=== PATIENT | male | born 1985 | race Hispanic/Latino ===

== ENCOUNTER 2019-06-25 13:07 | Emergency (ER) | payer SELFPAY ==
[~2019-06-25 13:07] MED LIST: ISOVUE-370 76%-LOCM 1 ML ONE
--- NOTE | 2019-06-25 15:48 | CT ---
EXAM: CT Facial Bones W Con PROVIDED CLINICAL HISTORY: Oral pain COMPARISON: None FINDINGS: Multiple dental caries and periodontal disease is noted. There is no evidence for soft tissue fluid c ollection to suggest abscess. The submandibular and parotid glands appear normal. No evidence for regional lymph node enlargement. No prevertebral soft tissue swelling apparent. The palatine tonsils appear normal. The globes and other orbital contents appear normal. The visualized paranasal sinuses appear clear. IMPRESSION: Dental and periodontal disease without evidence for abscess.
[2019-06-25 16:16] LABS: #Basophils 0.1 thou/uL (0.0-0.2); #Eosinphils 0.5 thou/uL (0.0-0.7); #Lymphocytes 2.1 thou/uL (1.20-3.40); #Monocytes 1.1 thou/uL (0.11-0.59); #Neutrophils 8.2 thou/uL (1.40-6.50); %Basophils 0.8 % (0.0-1.0); %Eosinophils 4.2 % (0.0-10.0); %Lymphocytes 17.3 % (21.0-51.0); %Neutrophils 68.7 % (42.0-75.0); Hemoglobin 17.7 g/dL (14.0-18.0); Mean Corpuscular HGB CONC 34.1 g/dL (32.0-36.0); Mean Corpuscular Hemoglobin 32.4 pg (27.0-31.0); Mean Corpuscular Volume 94.9 fL (78.0-98.0); Mean Platelet Volume 7.5 fL (7.4-10.4); Platelet Count 253 thou/uL (130-400); RBC Distribution Width 12.6 % (11.5-14.5); Red Blood Cell (RBC) Count 5.46 mill/uL (4.70-6.10); White Blood Cell (WBC) Count 11.9 thou/uL (4.8-10.8)
[2019-06-25 16:41] LABS: ALT (SGPT) 67 U/L (8-55); AST (SGOT) 106 U/L (5-34); Albumin 4.6 g/dL (3.5-5.0); Alkaline Phosphatase 45 U/L (40-150); Anion Gap 11 mmol/L (10-20); BUN (Urea Nitrogen) 10 mg/dL (8.9-20.6); Bilirubin, Total 0.9 mg/dL (0.2-1.2); Calc. Creatinine Clearance 0 mL/min (70-130); Calcium 9.7 mg/dL (7.8-10.44); Carbon Dioxide 32 mmol/L (22-29); Chloride 100 mmol/L (98-107); Estimated GFR-MDRD 62; Globulin 2.8 g/dL (2.4-3.5); Glucose 98 mg/dL (70-105); Potassium 4.6 mmol/L (3.5-5.1); Protein, Total 7.4 g/dL (6.0-8.3); Sodium 138 mmol/L (136-145)
[2019-06-25] MEDS ORDERED: Ondansetron PF 4 MG/2 ML Vial ONE (18:36)
[2019-06-25] MEDS ORDERED: Morphine 4 MG/ML VIAL ONE (18:36)
== END 2019-06-25 17:00 | disposition home or self-care (01) ==
LOC: ERS 13:07
DX: K13.70 Unspecified lesions of oral mucosa (principal); J45.909 Unspecified asthma, uncomplicated
CPT/HCPCS: 36415; 70487; 80053; 85025; 96374; 96375; J2270; J2405; Q9966